=== PATIENT | female | born 1995 | race Hispanic/Latino ===

== ENCOUNTER 2021-12-21 11:38 | Emergency (ER) | payer OTHER ==
[2021-12-21] MEDS ORDERED: Acetaminophen 500 MG TAB ONE (13:33)
== END 2021-12-21 13:40 | disposition home or self-care (01) ==
LOC: CSHERS 11:38
DX: S06.0X0A Concussion without loss of consciousness, initial encounter (principal); Y93.83 Activity, rough housing and horseplay; F17.210 Nicotine dependence, cigarettes, uncomplicated
CPT/HCPCS: 70450

== ENCOUNTER 2022-03-20 19:59 | Emergency (ER) | payer OTHER ==
[2022-03-20 21:40] LABS: BHCG - Serum Negative (NEGATIVE); Pregs Control Background? CLEAR/WHITE (CLR/WHITE); Pregs Control Bar Appear? YES (CONTROL BAR)
[2022-03-20 21:42] LABS: #Eosinphils 0.3 10x3/uL (0.0-0.5); #Monocytes 0.6 10x3/uL (0.0-1.1); #Neutrophils 7.8 10x3/uL (1.5-8.4); %Basophils 0.3 % (0.0-2.0); %Eosinophils 2.5 % (0.0-6.0); %Lymphocytes 20.4 % (18.0-47.0); %Monocytes 5.1 % (0.0-10.0); %Neutrophils 71.4 % (40.0-75.0); Hemoglobin 13.6 g/dL (12.0-15.5); Mean Corpuscular HGB CONC 34.8 g/dL (32.0-36.0); Mean Corpuscular Hemoglobin 29.3 pg (27.0-33.0); Mean Corpuscular Volume 84.3 fl (81.6-98.3); Platelet Count 386 10x3/uL (150-450); RBC Distribution Width 12.3 % (11.5-14.5); Red Blood Cell (RBC) Count 4.64 10x6/uL (3.90-5.03); White Blood Cell (WBC) Count 10.9 10x3/uL (3.5-10.5)
[2022-03-20 21:48] LABS: ALT (SGPT) 40 U/L (8-55); AST (SGOT) 26 U/L (5-34); Albumin 4.4 g/dL (3.5-5.0); Alkaline Phosphatase 85 U/L (40-110); Anion Gap 14 mmol/L (10-20); BUN (Urea Nitrogen) 14 mg/dL (7.0-18.7); Bilirubin, Total 0.4 mg/dL (0.2-1.2); Calc. Creatinine Clearance 0 mL/min (70-130); Calcium 9.5 mg/dL (7.8-10.44); Carbon Dioxide 22 mmol/L (22-29); Chloride 107 mmol/L (98-107); Estimated GFR 90; Globulin 3.1 g/dL (2.4-3.5); Glucose 109 mg/dL (70-105); Potassium 3.9 mmol/L (3.5-5.1); Protein, Total 7.5 g/dL (6.0-8.3); Sodium 139 mmol/L (136-145)
[2022-03-20] MEDS ORDERED: Acetaminophen 500 MG TAB ONE (22:18)
== END 2022-03-20 22:35 | disposition home or self-care (01) ==
LOC: CSHERS 19:59
DX: E86.0 Dehydration (principal); F12.10 Cannabis abuse, uncomplicated
CPT/HCPCS: 36416; 71045; 80053; 84484; 84703; 85025; 93005; 96360